=== PATIENT | female | born 1990 | race Caucasian/White ===

== ENCOUNTER 2021-03-31 18:03 | Emergency (ER) | payer MEDICAID, SELFPAY ==
[2021-03-31] MEDS ORDERED: Ketorolac Tromethamine 30 MG/ML VIAL ONE (18:58)
== END 2021-03-31 19:25 | disposition home or self-care (01) ==
LOC: NAV ERS 18:03
DX: K11.20 Sialoadenitis, unspecified (principal); F17.290 Nicotine dependence, other tobacco product, uncomplicated
CPT/HCPCS: 96372; 99283; J1885